=== PATIENT | male | born 1990 | race American Indian/Alaskan Native ===

== ENCOUNTER 2017-07-20 07:58 | Emergency (ER) | payer BC ==
[2017-07-20 08:30] VITALS: BP 116/71
--- NOTE | 2017-07-20 08:58 | Emergency Department Report ---
ED Rash HPI - HPI Chief Complaint: Skin Rash Stated Complaint: ITCHING Time Seen by Provider: 07/20/17 08:58 Duration: 2 Days Location: Upper Extremities Rash Symptoms: Yes Itching, No Facial Swelling, No Tongue/Oral Swelling, No Breathing Difficulties, No Choking Sensation, No Wheezing/Dyspnea, No Peeling, No Blistering, No Fever, No Lightheaded, No Malaise, No Myalgias Severity: mild Other History: 32-year-old male past medical history scabies presents with complaint of itching sensation to upper and lower extremities. Patient states that he has had these symptoms with scabies exposure in the past and is concerned that he may have scabies again. Patient has been scratching his arms consistently over the last 2-3 days. Denies fever chills nausea vomiting any recent travel. Patient works in the hospital. ED Review of Systems ROS: Stated complaint: ITCHING Other details as noted in HPI Constitutional: denies: chills, fever Eyes: denies: eye pain, eye discharge, vision change ENT: denies: ear pain, throat pain Respiratory: denies: cough, shortness of breath, wheezing Cardiovascular: denies: chest pain, palpitations Endocrine: no symptoms reported Gastrointestinal: denies: abdominal pain, nausea, diarrhea Genitourinary: denies: urgency, dysuria Musculoskeletal: denies: back pain, joint swelling, arthralgia Skin: as per HPI, pruritus. denies: rash, lesions Neurological: denies: headache, weakness, paresthesias Psychiatric: denies: anxiety, depression Hematological/Lymphatic: denies: easy bleeding, easy bruising ED Past Medical Hx - Past Medical History Additional medical history: Scabies - Surgical History Past Surgical History?: No Additional Surgical History: jaw surgery - Social History Smoking Status: Never Smoker Substance Use Type: None - Medications Home Medications: Home Medications Medication Instructions Recorded Confirmed Last Taken Type Hydrocortisone 1% [Hydrocortisone 1 applicatio TP TID PRN #1 tube 07/20/17 Unknown Rx 1% CREAM] Permethrin 5% [Acticin 5% CREAM] 1 applicatio TP ONCE #1 tube 07/20/17 Unknown Rx diphenhydrAMINE [Benadryl CAP] 25 mg PO Q8HR PRN #1 bottle 07/20/17 Unknown Rx Rash Exam - Exam General: Vital signs noted. No distress. Alert and acting appropriately. HEENT: No Periorbital Edema, No Conjuctival Injection, No Chemosis, No Perioral Edema, No Tongue Edema, No Uvular Edema, No Compromised Airway, No Drooling Lungs: Yes Good Air Exchange (Normal Breath Sounds), No Wheezes, No Ronchi, No Stridor, No Cough, No Labored Respirations, No Retractions, No Use of Accessory Muscles, No Other Abnormal Lung Sounds Heart: Yes Regular, No Murmur Skin: Yes Maculopapular Rash (some slightly red raised plaques on the forearms and legs were patient has been scratching), Yes Excoriations (him excoriations from scratching arms and legs), No Urticarial Rash, No Morbilliform rash, No Bulla(e), No Weeping, No Tenderness, No Erythema, No Edema, No Encrustations, No Other Other: Positive: Abdomen Normal, Neurologic Normal, Musculoskeletal Normal ED Course Vital Signs 07/20/17 08:26 Temperature 98.6 F Pulse Rate 79 Respiratory 18 Rate Blood Pressure 116/71 O2 Sat by Pulse 99 Oximetry ED Medical Decision Making - Medical Decision Making A/P: Scabies rash 1-empiric treatment with permethrin cream based on symptoms 2-symptomatic treatment with Benadryl and topical hydrocortisone Critical care attestation.: If time is entered above; I have spent that time in minutes in the direct care of this critically ill patient, excluding procedure time. ED Disposition Clinical Impression: Scabies Disposition: DC-01 TO HOME OR SELFCARE Is pt being admited?: No Does the pt Need Aspirin: No Condition: Stable Instructions: Scabies (ED) Prescriptions: diphenhydrAMINE [Benadryl CAP] 25 mg PO Q8HR PRN #1 bottle PRN Reason: Itching Hydrocortisone 1% [Hydrocortisone 1% CREAM] 1 applicatio TP TID PRN #1 tube PRN Reason: Itching Permethrin 5% [Acticin 5% CREAM] 1 applicatio TP ONCE #1 tube Referrals: [facility] [Outside] - 3-5 Days [facility] [Outside] - 3-5 Days [facility] [Provider Group] - 3-5 Days Forms: Work/School Release Form(ED) Time of Disposition: 09:38
== END 2017-07-20 09:47 | disposition home or self-care (01) ==
LOC: EDBD 07:58 → ED 07:58
DX: B86 Scabies (principal)
CPT/HCPCS: 99281

== ENCOUNTER 2017-08-23 05:48 | Emergency (ER) | payer BC ==
[2017-08-23 07:16] LABS: Basophils % (Auto) 1.2 % (0.0-1.8); Hematocrit 44.5 % (35.5-45.6); Hemoglobin 15.2 gm/dl (11.8-15.2); Mean Corpuscular HGB Conc 34 % (32-34); Mean Corpuscular Hemoglobin 32 pg (28-32); Mean Corpuscular Volume 92 fl (84-94); Platelet Count 202 K/mm3 (140-440); Red Blood Count 4.82 M/mm3 (3.65-5.03); Red Cell Distribution Width 12.9 % (13.2-15.2); White Blood Count 3.3 K/mm3 (4.5-11.0)
[2017-08-23 07:31] LABS: Alanine Aminotransferase 44 units/L (7-56); Albumin 4.1 g/dL (3.9-5); Albumin/Globulin Ratio 1.5 %; Alkaline Phosphatase 55 units/L (35-129); Anion Gap 14 mmol/L; BUN/Creatinine Ratio 11; Blood Urea Nitrogen 9 mg/dL (9-20); Calcium 9.3 mg/dL (8.4-10.2); Carbon Dioxide 26 mmol/L (22-30); Chloride 103.8 mmol/L (98-107); Glucose 92 mg/dL (75-100); Lipase 23 units/L (13-60); Potassium 4.1 mmol/L (3.6-5.0); Sodium 140 mmol/L (137-145); Total Protein 6.8 g/dL (6.3-8.2)
[2017-08-23 07:38] LABS: WBC,Urine < 1.0 /HPF (0.0-6.0)
[2017-08-23 07:45] LABS: Bilirubin,Urine Negative (Negative)
[2017-08-23 07:46] LABS: Blood,Urine Negative (Negative); Ketones,Urine Negative (Negative); Leukocyte Esterase,Urine Negative (Negative); Nitrite,Urine Negative (Negative); Protein,Urine <15 mg/dL mg/dL (Negative); Urobilinogen,Urine < 2.0 mg/dL (<2.0)
--- NOTE | 2017-08-23 10:56 | Emergency Department Report ---
ED General Adult HPI - General Chief complaint: Abdominal Pain Stated complaint: N/D, ABD PAIN Time Seen by Provider: 08/23/17 10:16 Source: patient Mode of arrival: Ambulatory Limitations: No Limitations - History of Present Illness Initial comments: The patient complains of stomach upset associated with doxycycline. He complains of discomfort in the epigastric area which has already resolved. He is requesting a work excuse and discharge. He states he had minimal diarrhea but no fever. He states his symptoms have resolved. He says they're associated with doxycycline which he is almost finished with for a "UTI". Patient states he's had a recent HIV test which was negative. -: hour(s) Radiation: non-radiation Quality: aching Consistency: now resolved Improves with: none Worsens with: none Associated Symptoms: denies other symptoms - Related Data Previous Rx's Medication Instructions Recorded Last Taken Type Hydrocortisone 1% [Hydrocortisone 1 applicatio TP TID PRN #1 tube 07/20/17 Unknown Rx 1% CREAM] Permethrin 5% [Acticin 5% CREAM] 1 applicatio TP ONCE #1 tube 07/20/17 Unknown Rx diphenhydrAMINE [Benadryl CAP] 25 mg PO Q8HR PRN #1 bottle 07/20/17 Unknown Rx Allergies Allergy/AdvReac Type Severity Reaction Status Date / Time No Known Allergies Allergy Unverified 08/07/16 19:31 ED Review of Systems ROS: Stated complaint: N/D, ABD PAIN Other details as noted in HPI Constitutional: denies: chills, fever Eyes: denies: eye pain, eye discharge, vision change ENT: denies: ear pain, throat pain Respiratory: denies: cough, shortness of breath, wheezing Cardiovascular: denies: chest pain, palpitations Endocrine: no symptoms reported Gastrointestinal: as per HPI, abdominal pain, diarrhea. denies: nausea Genitourinary: denies: urgency, dysuria Musculoskeletal: denies: back pain, joint swelling, arthralgia Skin: denies: rash, lesions Neurological: denies: headache, weakness, paresthesias Psychiatric: denies: anxiety, depression Hematological/Lymphatic: denies: easy bleeding, easy bruising ED Past Medical Hx - Past Medical History Previous Medical History?: Yes Additional medical history: Scabies - Surgical History Past Surgical History?: Yes Additional Surgical History: jaw surgery - Social History Smoking Status: Current Every Day Smoker - Medications Home Medications: Home Medications Medication Instructions Recorded Confirmed Last Taken Type Hydrocortisone 1% [Hydrocortisone 1 applicatio TP TID PRN #1 tube 07/20/17 Unknown Rx 1% CREAM] Permethrin 5% [Acticin 5% CREAM] 1 applicatio TP ONCE #1 tube 07/20/17 Unknown Rx diphenhydrAMINE [Benadryl CAP] 25 mg PO Q8HR PRN #1 bottle 07/20/17 Unknown Rx ED Physical Exam - General Limitations: No Limitations General appearance: alert, in no apparent distress - Head Head exam: Present: atraumatic, normocephalic - Eye Eye exam: Present: normal appearance. Absent: scleral icterus - ENT ENT exam: Present: mucous membranes moist - Neck Neck exam: Present: normal inspection - Respiratory Respiratory exam: Present: normal lung sounds bilaterally. Absent: respiratory distress - Cardiovascular Cardiovascular Exam: Present: regular rate, normal rhythm. Absent: systolic murmur, diastolic murmur, rubs, gallop - GI/Abdominal GI/Abdominal exam: Present: soft, normal bowel sounds. Absent: distended, tenderness, guarding, rebound, rigid - Rectal Rectal exam: Present: deferred - Extremities Exam Extremities exam: Present: normal inspection - Back Exam Back exam: Present: normal inspection - Neurological Exam Neurological exam: Present: alert, oriented X3, CN II-XII intact. Absent: motor sensory deficit - Psychiatric Psychiatric exam: Present: normal affect, normal mood - Skin Skin exam: Present: warm, dry, intact, normal color. Absent: rash ED Course Vital Signs 08/23/17 08/23/17 08/23/17 05:00 05:56 06:00 Temperature 97.5 F L Pulse Rate 99 H 66 Respiratory 13 18 Rate Blood Pressure 102/66 113/68 102/66 O2 Sat by Pulse 99 100 84 Oximetry 08/23/17 08/23/17 08/23/17 06:26 06:58 07:18 Temperature Pulse Rate Respiratory Rate Blood Pressure 102/66 102/66 102/66 O2 Sat by Pulse 77 L 94 79 L Oximetry 08/23/17 08/23/17 08/23/17 08:24 08:30 08:46 Temperature Pulse Rate Respiratory Rate Blood Pressure 113/76 105/70 102/66 O2 Sat by Pulse 100 99 100 Oximetry 08/23/17 08/23/17 08/23/17 09:00 09:16 09:30 Temperature Pulse Rate Respiratory Rate Blood Pressure 107/80 105/70 105/45 O2 Sat by Pulse 100 99 100 Oximetry 08/23/17 08/23/17 08/23/17 09:46 10:00 10:15 Temperature Pulse Rate Respiratory Rate Blood Pressure 107/80 108/61 108/61 O2 Sat by Pulse 100 100 100 Oximetry ED Medical Decision Making - Lab Data Result diagrams: 08/23/17 07:01 08/23/17 07:01 Laboratory Results - last 24 hr 08/23/17 08/23/17 08/23/17 07:01 07:01 Unknown WBC 3.3 L RBC 4.82 Hgb 15.2 Hct 44.5 MCV 92 MCH 32 MCHC 34 RDW 12.9 L Plt Count 202 Lymph % (Auto) 46.4 H [place] % (Auto) 10.3 H Eos % (Auto) 4.0 Baso % (Auto) 1.2 Lymph # 1.5 [place] # 0.3 Eos # 0.1 Baso # 0.0 Seg Neutrophils % 38.1 L Seg Neutrophils # 1.3 L Sodium 140 Potassium 4.1 Chloride 103.8 Carbon Dioxide 26 Anion Gap 14 BUN 9 Creatinine 0.8 Estimated GFR > 60 BUN/Creatinine Ratio 11 Glucose 92 Calcium 9.3 Total Bilirubin 0.40 AST 27 ALT 44 Alkaline Phosphatase 55 Total Protein 6.8 Albumin 4.1 Albumin/Globulin Ratio 1.5 Lipase 23 Urine Color Straw Urine Turbidity Clear Urine pH 7.0 Ur Specific [place] 1.010 Urine Protein <15 mg/dl Urine Glucose (UA) Negative Urine Ketones Negative Urine Blood Negative Urine Nitrite Negative Ur Reducing Substances Not Reportable Urine Bilirubin Negative Urine Ictotest Not Reportable Urine Urobilinogen < 2.0 Ur Leukocyte Esterase Negative Urine WBC (Auto) < 1.0 Urine RBC (Auto) 3.0 U Epithel Cells (Auto) < 1.0 Patient noted to have mild neutropenia Critical care attestation.: If time is entered above; I have spent that time in minutes in the direct care of this critically ill patient, excluding procedure time. ED Disposition Clinical Impression: Abdominal pain Qualifiers: Abdominal location: unspecified location Qualified Code(s): R10.9 - Unspecified abdominal pain Neutropenia Qualifiers: Neutropenia type: unspecified Qualified Code(s): D70.9 - Neutropenia, unspecified Disposition: TO HOME OR SELFCARE Is pt being admited?: No Does the pt Need Aspirin: No Condition: Stable Instructions: Abdominal Pain (ED), Neutropenia (ED) Additional Instructions: You white blood cell count was slightly low. I would recommend this is repeated with your primary care physician. Return if any acute change or worsening symptoms particularly if you have a fever or chills. Referrals: PATRICK AMATO MD [Primary Care Provider] - 3-5 Days Forms: Work/School Release Form(ED) Time of Disposition: 10:59
[2017-08-23 11:57] VITALS: BP 107/62
== END 2017-08-23 11:20 | disposition home or self-care (01) ==
LOC: ED 05:48
DX: R10.13 Epigastric pain (principal); D70.9 Neutropenia, unspecified; F17.200 Nicotine dependence, unspecified, uncomplicated
CPT/HCPCS: 36415; 80048; 80053; 81001; 83690; 85025; 99283

== ENCOUNTER 2018-04-15 03:40 | Emergency (ER) | payer SELFPAY ==
--- NOTE | 2018-04-15 05:01 | XRay Report ---
FINAL REPORT EXAM: XR CHEST ROUTINE 2V HISTORY: Shortness of breath w/ chets tightness TECHNIQUE: PA and lateral chest radiographs PRIORS: None. FINDINGS: No mediastinal shift. Cardiac silhouette is not enlarged. No pneumothorax, effusion, or focal pulmonary opacity. No acute skeletal finding. IMPRESSION: No focal pulmonary opacity.
[2018-04-15 05:10] LABS: Basophils % (Auto) 1.1 % (0.0-1.8); Eosinophils # (Auto) 0.2 K/mm3 (0.0-0.4); Eosinophils % (Auto) 4.9 % (0.0-4.3); Hemoglobin 15.3 gm/dl (11.8-15.2); Lymphocytes # (Auto) 1.9 K/mm3 (1.2-5.4); Lymphocytes % (Auto) 45.9 % (13.4-35.0); Mean Corpuscular HGB Conc 35 % (32-34); Mean Corpuscular Hemoglobin 32 pg (28-32); Mean Corpuscular Volume 92 fl (84-94); Monocytes # (Auto) 0.5 K/mm3 (0.0-0.8); Monocytes % (Auto) 11.1 % (0.0-7.3); Platelet Count 210 K/mm3 (140-440); Red Blood Count 4.79 M/mm3 (3.65-5.03); Red Cell Distribution Width 13.5 % (13.2-15.2)
[2018-04-15 05:13] LABS: BUN/Creatinine Ratio 11; Blood Urea Nitrogen 9 mg/dL (9-20); Calcium 9.5 mg/dL (8.4-10.2); Hemolysis Index 5
[2018-04-15] MEDS ORDERED: MOTRIN PO ONE (09:14)
[2018-04-15] MEDS ORDERED: TYLENOL PO ONE (09:14)
--- NOTE | 2018-04-15 09:15 | Emergency Department Report ---
ED General Adult HPI - General Chief complaint: Chest Pain Stated complaint: CHEST PAIN/BACKACHE Time Seen by Provider: 04/15/18 09:04 Source: patient, RN notes reviewed, old records reviewed Mode of arrival: Ambulatory Limitations: No Limitations - History of Present Illness Initial comments: This is a 28-year-old gentleman who is not known to this provider previously. He does not have a local primary care doctor. He presents to the ER with 1 week of left-sided chest pain. The pain is intermittent, it does not radiates to the back, arms or neck. There is no vomiting or diaphoresis. There is no shortness of breath. He denies DVT and pulmonary embolus risk factors. He also indicates the pain worsens when he takes a deep breath. Concurrently, he complains of pain in his bilateral knuckles, bilateral elbows, bilateral toes, and bilateral knees. This pain has been present on and off for a few weeks. It is achy and does not radiate anywhere. He denies rash, vomiting, dysuria, abdominal pain and testicular pain. To me he denies back pain. -: Gradual, week(s) Location: chest, left, right, upper extremity, lower extremity Radiation: non-radiation Severity scale (0 -10): 5 Consistency: intermittent Improves with: rest Worsens with: movement Associated Symptoms: chest pain, malaise. denies: confusion, cough, diaphoresis , fever/chills, headaches, loss of appetite, nausea/vomiting, rash, seizure, shortness of breath, syncope, weakness - Related Data Previous Rx's Medication Instructions Recorded Last Taken Type Hydrocortisone 1% [Hydrocortisone 1 applicatio TP TID PRN #1 tube 07/20/17 Unknown Rx 1% CREAM] Permethrin 5% [Acticin 5% CREAM] 1 applicatio TP ONCE #1 tube 07/20/17 Unknown Rx diphenhydrAMINE [Benadryl CAP] 25 mg PO Q8HR PRN #1 bottle 07/20/17 Unknown Rx Acetaminophen [Tylenol Arthritis] 650 mg PO Q6HR PRN #30 tablet.er 04/15/18 Unknown Rx Ibuprofen [Motrin] 600 mg PO Q8H PRN #30 tablet 04/15/18 Unknown Rx Allergies Allergy/AdvReac Type Severity Reaction Status Date / Time No Known Allergies Allergy Unverified 08/07/16 19:31 ED Review of Systems ROS: Stated complaint: CHEST PAIN/BACKACHE Other details as noted in HPI Comment: All other systems reviewed and negative ED Past Medical Hx - Past Medical History Additional medical history: Scabies - Surgical History Additional Surgical History: jaw surgery - Social History Smoking Status: Never Smoker - Medications Home Medications: Home Medications Medication Instructions Recorded Confirmed Last Taken Type Hydrocortisone 1% [Hydrocortisone 1 applicatio TP TID PRN #1 tube 07/20/17 Unknown Rx 1% CREAM] Permethrin 5% [Acticin 5% CREAM] 1 applicatio TP ONCE #1 tube 07/20/17 Unknown Rx diphenhydrAMINE [Benadryl CAP] 25 mg PO Q8HR PRN #1 bottle 07/20/17 Unknown Rx Acetaminophen [Tylenol Arthritis] 650 mg PO Q6HR PRN #30 tablet.er 04/15/18 Unknown Rx Ibuprofen [Motrin] 600 mg PO Q8H PRN #30 tablet 04/15/18 Unknown Rx ED Physical Exam - General Limitations: No Limitations General appearance: alert, in no apparent distress - Head Head exam: Present: atraumatic, normocephalic - Eye Eye exam: Present: normal appearance, EOMI. Absent: nystagmus - ENT ENT exam: Present: normal exam, normal orophraynx, mucous membranes moist, normal external ear exam - Neck Neck exam: Present: normal inspection, full ROM - Respiratory Respiratory exam: Present: normal lung sounds bilaterally. Absent: respiratory distress - Cardiovascular Cardiovascular Exam: Present: normal rhythm, bradycardia, normal heart sounds. Absent: systolic murmur, diastolic murmur, rubs, gallop - GI/Abdominal GI/Abdominal exam: Present: soft, normal bowel sounds. Absent: distended, tenderness, guarding, rebound, rigid, pulsatile mass - Rectal Rectal exam: Present: deferred - Extremities Exam Extremities exam: Present: normal inspection, full ROM, normal capillary refill , other (2+ pulses noted in the bilateral upper, lower extremities. Compartments soft. No long bony tenderness. The pelvis is stable.). Absent: pedal edema, joint swelling, calf tenderness - Back Exam Back exam: Present: normal inspection, full ROM. Absent: tenderness, CVA tenderness (R), paraspinal tenderness, vertebral tenderness - Neurological Exam Neurological exam: Present: alert, oriented X3, CN II-XII intact, normal gait, other (Extraocular movements intact. Tongue midline. No facial droop. Facial sensation intact to light touch in the V1, V2, V3 distribution bilaterally. 5 and 5 strength in 4 extremities.. Sensation is intact to light touch in 4 extremities.). Absent: motor sensory deficit - Psychiatric Psychiatric exam: Present: normal affect, normal mood - Skin Skin exam: Present: warm, dry, intact, normal color. Absent: rash ED Course Vital Signs 04/15/18 04/15/18 04:11 06:45 Temperature 97.6 F 97.9 F Pulse Rate 57 L 54 L Respiratory 20 20 Rate Blood Pressure 120/84 116/76 O2 Sat by Pulse 100 99 Oximetry ED Medical Decision Making - Lab Data Result diagrams: 04/15/18 04:37 04/15/18 04:37 Vital Signs 04/15/18 04/15/18 04:11 06:45 Temperature 97.6 F 97.9 F Pulse Rate 57 L 54 L Respiratory 20 20 Rate Blood Pressure 120/84 116/76 O2 Sat by Pulse 100 99 Oximetry Laboratory Last Values WBC 4.2 K/mm3 (4.5-11.0) L 04/15/18 04:37 RBC 4.79 M/mm3 (3.65-5.03) 04/15/18 04:37 Hgb 15.3 gm/dl (11.8-15.2) H 04/15/18 04:37 Hct 44.0 % (35.5-45.6) 04/15/18 04:37 MCV 92 fl (84-94) 04/15/18 04:37 MCH 32 pg (28-32) 04/15/18 04:37 MCHC 35 % (32-34) H 04/15/18 04:37 RDW 13.5 % (13.2-15.2) 04/15/18 04:37 Plt Count 210 K/mm3 (140-440) 04/15/18 04:37 Lymph % (Auto) 45.9 % (13.4-35.0) H 04/15/18 04:37 [place] % (Auto) 11.1 % (0.0-7.3) H 04/15/18 04:37 Eos % (Auto) 4.9 % (0.0-4.3) H 04/15/18 04:37 Baso % (Auto) 1.1 % (0.0-1.8) 04/15/18 04:37 Lymph # 1.9 K/mm3 (1.2-5.4) 04/15/18 04:37 [place] # 0.5 K/mm3 (0.0-0.8) 04/15/18 04:37 Eos # 0.2 K/mm3 (0.0-0.4) 04/15/18 04:37 Baso # 0.0 K/mm3 (0.0-0.1) 04/15/18 04:37 Seg Neutrophils % 37.0 % (40.0-70.0) L 04/15/18 04:37 Seg Neutrophils # 1.5 K/mm3 (1.8-7.7) L 04/15/18 04:37 Sodium 142 mmol/L (137-145) 04/15/18 04:37 Potassium 4.0 mmol/L (3.6-5.0) 04/15/18 04:37 Chloride 100.4 mmol/L (98-107) 04/15/18 04:37 Carbon Dioxide 31 mmol/L (22-30) H 04/15/18 04:37 Anion Gap 15 mmol/L 04/15/18 04:37 BUN 9 mg/dL (9-20) 04/15/18 04:37 Creatinine 0.8 mg/dL (0.8-1.5) 04/15/18 04:37 Estimated GFR > 60 ml/min 04/15/18 04:37 BUN/Creatinine Ratio 11 % 04/15/18 04:37 Glucose 92 mg/dL (75-100) 04/15/18 04:37 Calcium 9.5 mg/dL (8.4-10.2) 04/15/18 04:37 Troponin T < 0.010 ng/mL (0.00-0.029) 04/15/18 08:39 Lab Results 04/15/18 04/15/18 04/15/18 Range/Units 04:37 04:37 08:39 WBC 4.2 L (4.5-11.0) K/mm3 RBC 4.79 (3.65-5.03) M/mm3 Hgb 15.3 H (11.8-15.2) gm/dl Hct 44.0 (35.5-45.6) % MCV 92 (84-94) fl MCH 32 (28-32) pg MCHC 35 H (32-34) % RDW 13.5 (13.2-15.2) % Plt Count 210 (140-440) K/mm3 Lymph % (Auto) 45.9 H (13.4-35.0) % [place] % (Auto) 11.1 H (0.0-7.3) % Eos % (Auto) 4.9 H (0.0-4.3) % Baso % (Auto) 1.1 (0.0-1.8) % Lymph # 1.9 (1.2-5.4) K/mm3 [place] # 0.5 (0.0-0.8) K/mm3 Eos # 0.2 (0.0-0.4) K/mm3 Baso # 0.0 (0.0-0.1) K/mm3 Seg Neutrophils % 37.0 L (40.0-70.0) % Seg Neutrophils # 1.5 L (1.8-7.7) K/mm3 Sodium 142 (137-145) mmol/L Potassium 4.0 (3.6-5.0) mmol/L Chloride 100.4 (98-107) mmol/L Carbon Dioxide 31 H (22-30) mmol/L Anion Gap 15 mmol/L BUN 9 (9-20) mg/dL Creatinine 0.8 (0.8-1.5) mg/dL Estimated GFR > 60 ml/min BUN/Creatinine Ratio 11 % Glucose 92 (75-100) mg/dL Calcium 9.5 (8.4-10.2) mg/dL Troponin T < 0.010 < 0.010 (0.00-0.029) ng/mL - EKG Data -: EKG Interpreted by Ak Rate: bradycardia - EKG Data When compared to previous EKG there are: previous EKG unavailable 04/15/18 09:57 EKG #1 shows sinus bradycardia, 54 bpm, normal axis, normal intervals, high left ventricular voltage. EKG #2 appears to be unchanged. - Radiology Data Radiology results: report reviewed, image reviewed X-ray of the chest is negative for acute disease - Medical Decision Making Differential diagnosis, including but not limited to: Polyarthritis, lupus, pericarditis, pneumonia, acute coronary syndrome, pleuritis Assessment and plan: 28-year-old male who complains of migratory bilateral polyarthritis and pleuritic chest pain. The patient has no obvious rash, his symptoms have been present for 1 week, he is low risk by well's criteria, low risk by MICAELA score, lowest by heart score, and is perc negative there are no DVT or pulmonary embolus risk factors.; His joint examination is unremarkable, there is no redness, pus or streaking, there is no tenderness, and the compartments are soft. There is no obvious rash. His chest x-ray was unremarkable, troponin was negative 2, EKG unremarkable 2. Patient has a chronic asymptomatic mild neutropenia, with an absolute neutrophil count of 1554. He is instructed to follow-up in outpatient primary care doctor for this. He can follow-up with an outpatient primary care doctor for his arthralgias as well. He does not require an emergent screening or diagnosis of possible lupus. When I initially went in to examine the patient he was sleeping and appeared quite comfortable. I discussed his abnormal laboratory studies with him, and reinforced the need for close outpatient follow-up. given presentation, patieNt can follow up with an outpatient primary care doctor or databases computer consultant for his pleuritic chest pain. Critical care attestation.: If time is entered above; I have spent that time in minutes in the direct care of this critically ill patient, excluding procedure time. ED Disposition Clinical Impression: Polyarthritis, Pleurisy Disposition: DC-01 TO HOME OR SELFCARE Is pt being admited?: No Does the pt Need Aspirin: No Condition: Stable Instructions: Pleurisy (ED), Anemia (ED) Additional Instructions: Take the pain medications as needed/directed. Follow up with any of the listed cardiology practices within the next 3-5 days. Please note that laboratory studies indicated decreased neutrophil count, decreased white blood cell count, which should be followed up by either her primary care doctor or holistic health practitioner within the next month. Dr. Funez is a local organizational development specialist. Dr. Luna is a local primary care doctor. Not following up for this incidental abnormality and white blood cell count may result in undiagnosed malignancy, or undiagnosed immune compromised status, which in turn to cause long-term disability and loss of quality of life. Please return to the ER right away with new pain, worsening pain, migration of pain, fevers, chills, lethargy, irritability, projectile vomiting, change in mental status, confusion, inability to tolerate liquid feeds. Referrals: PRIMARY CARE, [Primary Care Provider] - 3-5 Days KAITLYN LUNA MD [Staff Physician] - 3-5 Days DANETTE FUNEZ MD [Staff Physician] - 3-5 Days [facility] [Provider Group] - 3-5 Days [facility] [Provider Group] - 3-5 Days
[2018-04-15 11:08] VITALS: BP 115/71
== END 2018-04-15 11:07 | disposition home or self-care (01) ==
LOC: ED 03:40
DX: M13.0 Polyarthritis, unspecified (principal); R09.1 Pleurisy
CPT/HCPCS: 36415; 71046; 80048; 84484; 85025; 93005; 93010